=== PATIENT | male | born 1980 | race African-American/Black ===

== ENCOUNTER 2024-04-10 17:08 | Emergency (ER) | payer OTHER ==
[~2024-04-10] VITALS: Ht 180.3 cm; Wt 72.3 kg
[2024-04-10] MEDS: LIDOCAINE 1% 10 ML VIAL ID ONE (19:43)
[2024-04-10] MEDS: PERTUSS(ACELL),DIPH,TET/PF 0.5 ML SYRINGE [ADULT] IM. ONE (19:45)
[2024-04-10] MEDS: BACITRACIN 0.9 GM PACKET OINTMENT TP ONE (19:45)
[2024-04-10] MEDS: IBUPROFEN 600 MG TABLET PO ONE (19:46)
[2024-04-10] MEDS: CeFAZolin SODIUM 1 GM VIAL IM ONE (19:46)
[2024-04-10] MEDS: SODIUM CHLORIDE 0.9% 250 ML IRRIG SOLUTION BOTTLE IRRIG ONE (19:47)
[2024-04-10] MEDS ORDERED: IBUP-1492 PO (19:56)
[2024-04-10] MEDS ORDERED: CEPH-558 PO (19:56)
[2024-04-10 20:12] VITALS: BP 127/69; PULSE 74; RESP 15; TEMP 97.3
== END 2024-04-10 20:44 ==
LOC: EMS 17:08
DX: S01.81XA Laceration without foreign body of other part of head, initial encounter (principal); S02.2XXA Fracture of nasal bones, initial encounter for closed fracture; J45.909 Unspecified asthma, uncomplicated; I10 Essential (primary) hypertension; Z88.8 Allergy status to other drugs, medicaments and biological substances; Y04.8XXA Assault by other bodily force, initial encounter; Y93.89 Activity, other specified; Y92.89 Other specified places as the place of occurrence of the external cause; Y99.8 Other external cause status
CPT/HCPCS: 99285; 70450; 70486; 72125; 90715; 90471; 12011; 96372; J0690; J3490

== ENCOUNTER 2024-05-24 23:09 | Inpatient (IN) | payer OTHER ==
[~2024-05-24] VITALS: Ht 180.3 cm; Wt 79.5 kg
[~2024-05-24 23:09] MED LIST: BUPR-514 PO; GABA-1181 PO; MELA3TAB89 PO; PRAZ2 PO
[2024-05-24] MEDS ORDERED: ACET-3385 PO (23:33)
[2024-05-24] MEDS ORDERED: BUSP5TAB20 PO (23:33)
[2024-05-25 01:06] LABS: ANION GAP 9 mmol/L (8-16); CALCIUM, TOTAL 8.2 mg/dL (8.8-10.5); CARBON DIOXIDE 26 mmol/L (22-29); CHLORIDE 101 mmol/L (98-107); CREATININE 1.24 mg/dL (0.60-1.30); GLOMERULAR FILTR. RATE CALC > 60 mL/min (>60); GLUCOSE,RANDOM 98 mg/dL (70-110); POTASSIUM 4.5 mmol/L (3.5-5.1); SODIUM SERUM 136 mmol/L (136-145); UREA NITROGEN, BLOOD 18 mg/dL (7-18)
[2024-05-25 01:15] LABS: ALCOHOL, BLOOD (SERUM) < 3 mg/dL (0-10)
[2024-05-25 01:15] LABS: PH,URINE DRUG SCREEN 5.5 (5.0-8.0)
[2024-05-25 01:16] LABS: BASOPHILS % (AUTO) 1.1 % (0.0-2.0); EOSINOPHILS % (AUTO) 4.6 % (1.0-6.0); HEMATOCRIT 41.7 % (41-53); HEMOGLOBIN 13.8 g/dL (13.5-17.5); LYMPHOCYTES # (AUTO) 1.5 K/uL (1.0-4.8); LYMPHOCYTES % (AUTO) 38.7 % (22.0-44.0); MEAN CORPUSCULAR VOLUME 94 fL (80-100); MONOCYTES # (AUTO) 0.4 K/uL (0.1-1.0); MONOCYTES % (AUTO) 8.9 % (2.0-9.0); NEUTROPHILS # (AUTO) 1.8 K/uL (1.8-7.7); NEUTROPHILS % (AUTO) 46.7 % (40.0-70.0); PLATELET COUNT (AUTO) 236 K/uL (150-450); RED BLOOD CELL COUNT(AUTO) 4.44 MIL/uL (4.50-5.90); RED CELL DISTRIBUTION WIDTH 13.2 % (11.5-14.5)
[2024-05-25 01:22] LABS: AMPHET/METH SCREEN,URINE NEGATIVE (NEGATIVE); BARBITURATE SCREEN, URINE NEGATIVE (NEGATIVE); BENZODIAZEPINES SCREEN,URINE NEGATIVE (NEGATIVE); CANNABINOID SCREEN,URINE NEGATIVE (NEGATIVE); COCAINE SCREEN,URINE NEGATIVE (NEGATIVE); METHADONE SCREEN, URINE NEGATIVE (NEGATIVE); OPIATE SCREEN,URINE NEGATIVE (NEGATIVE); PHENCYCLIDINE SCREEN,URINE NEGATIVE (NEGATIVE)
[2024-05-25 01:24] LABS: ALCOHOL, URINE DRUG SCREEN NEGATIVE (NEGATIVE)
[2024-05-25] MEDS: AMPICILLIN SODIUM/SULBACTAM NA 3 GM in SODIUM CHLORIDE 0.9% 100 ML IV ONE (03:49)
[2024-05-25] MEDS: SODIUM CHLORIDE 0.9% 1,000 ML IV ONE (03:49)
[2024-05-25] MEDS: FAMOTIDINE 20 MG/2 ML VIAL IVP ONE (03:49)
[2024-05-25] MEDS: MORPHINE SULFATE 2 MG/ML SYRINGE IVP ONE ×2 (03:50→08:17)
[2024-05-25] MEDS ORDERED: MAGNESIUM HYDROXIDE SUSPENSION 30 ML UDCUP PO PRN (08:30)
[2024-05-25] MEDS: PANTOPRAZOLE SODIUM 40 MG/VIAL IVP SCH (09:49)
[2024-05-25 11:24] VITALS: BP 128/77; PULSE 64; RESP 16; TEMP 97.7; O2SAT 99
[2024-05-25 12:00] VITALS: BP 132/83; PULSE 71; RESP 18; TEMP 98.5; O2SAT 98
[2024-05-25] MEDS ORDERED: MIDAZOLAM HCL 2 MG/2 ML VIAL ONE ×3 (13:18→13:49)
[2024-05-25] MEDS ORDERED: FentaNYL CITRATE PF 100 MCG/2 ML VIAL ONE ×2 (13:19→13:49)
[2024-05-25] MEDS ORDERED: SODIUM CHLORIDE 0.9% 1,000 ML ONE (13:27)
[2024-05-25 13:36] LABS: APPEARANCE,URINE CLEAR (CLEAR); BILIRUBIN,URINE NEGATIVE (NEGATIVE); COLOR,URINE LIGHT YELLOW (YELLOW); GLUCOSE, URINE (UA) NEGATIVE (NEGATIVE); KETONES,URINE NEGATIVE (NEGATIVE); LEUKOCYTE ESTERASE ,URINE NEGATIVE (NEGATIVE); NITRATE,URINE NEGATIVE (NEGATIVE); OCCULT BLOOD,URINE NEGATIVE (NEGATIVE); PH,URINE 6.5 (5.0-8.0); PROTEIN,URINE NEGATIVE (NEGATIVE); SPECIFIC GRAVITIY, URINE 1.023 (1.003-1.030); UROBILINOGEN,URINE <=1.0 mg/dL (<=1.0)
[2024-05-25 16:00] VITALS: BP 129/72; PULSE 16; PULSE 68; RESP 16; TEMP 98.1; O2SAT 96
[2024-05-25] MEDS ORDERED: BENZOCAINE 20% 50 MCG/SPRAY 57 GM TP ONE (17:34)
[2024-05-25] MEDS ORDERED: LIDOCAINE 2% 11 ML JELLY TP ONE (17:34)
[2024-05-25] MEDS ORDERED: LIDOCAINE 4% 50 ML SOLUTION TP ONE (17:34)
[2024-05-25] MEDS: AMPICILLIN SODIUM/SULBACTAM NA 3 GM in SODIUM CHLORIDE 0.9% 100 ML IV SCH (17:43)
[2024-05-25] MEDS: MORPHINE SULFATE 2 MG/ML SYRINGE IVP PRN (17:56)
[2024-05-25 19:48] VITALS: BP 130/88; PULSE 74; RESP 17; TEMP 97.6; O2SAT 98
[2024-05-25 23:23] VITALS: BP 117/76; PULSE 67; RESP 18; TEMP 98; O2SAT 98
[2024-05-26] MEDS: ONDANSETRON HCL 4 MG/2 ML VIAL IVP PRN (03:34)
[2024-05-26 05:31] VITALS: BP 118/80; PULSE 76; RESP 18; TEMP 98.1; O2SAT 97
[2024-05-26 08:55] VITALS: BP 110/69; PULSE 72; RESP 17; TEMP 98; O2SAT 98
[2024-05-26 12:02] VITALS: BP 108/70; PULSE 53; RESP 18; TEMP 98.2; O2SAT 98
[2024-05-26 16:02] VITALS: BP 113/72; PULSE 62; RESP 17; TEMP 97.7; O2SAT 98
[2024-05-26 20:09] VITALS: BP 110/65; PULSE 70; RESP 18; TEMP 98; O2SAT 95
[2024-05-26 23:00] VITALS: RESP 18; O2SAT 95
[2024-05-27 00:06] VITALS: BP 121/88; PULSE 59; RESP 19; TEMP 97.8; O2SAT 100
[2024-05-27 04:44] VITALS: BP 104/65; PULSE 68; RESP 19; TEMP 98.2; O2SAT 98
[2024-05-27 08:55] VITALS: BP 103/66; PULSE 77; RESP 18; TEMP 98; O2SAT 98
[2024-05-27 11:50] VITALS: BP 118/75; PULSE 72; RESP 19; TEMP 98; O2SAT 100
[2024-05-27 15:34] VITALS: BP 112/74; PULSE 69; RESP 18; TEMP 98.2; O2SAT 100
[2024-05-27 20:34] VITALS: BP 124/78; PULSE 74; RESP 16; TEMP 98.4; O2SAT 98
[2024-05-28] VITALS (7 sets, daily range): BP systolic 110–122; BP diastolic 69–95; PULSE 61–72; RESP 17–20; TEMP 97.6–98.5; O2SAT 97–99
[2024-05-28] MEDS: BuPROPion HCL XL 150 MG ER TABLET PO SCH (14:08)
[2024-05-28] MEDS: BusPIRone HCL 10 MG TABLET PO SCH (21:36)
[2024-05-28] MEDS: PRAZOSIN HCL 2 MG CAPSULE PO SCH (21:36)
[2024-05-28] MEDS ORDERED: SODIUM CHLORIDE 0.9% 500 ML IV ONE (23:45)
[2024-05-29 08:26] VITALS: BP 125/84; PULSE 71; RESP 18; TEMP 98.4; O2SAT 97
[2024-05-29 20:00] VITALS: BP 132/80; PULSE 84; RESP 18; TEMP 98.7; O2SAT 98
[2024-05-29] MEDS: GABAPENTIN 300 MG CAPSULE PO SCH (22:10)
[2024-05-30 04:30] VITALS: BP 118/79; PULSE 75; RESP 18; TEMP 97.6; O2SAT 98
[2024-05-30 19:37] VITALS: BP 116/70; PULSE 75; RESP 18; TEMP 98.1; O2SAT 99
[2024-05-31 05:48] VITALS: BP 123/75; PULSE 71; RESP 18; TEMP 98; O2SAT 99
[2024-05-31 20:00] VITALS: BP 139/95; PULSE 77; RESP 18; TEMP 98; O2SAT 98
[2024-06-01 05:52] VITALS: BP 120/65; PULSE 75; RESP 19; TEMP 98.2; O2SAT 98
[2024-06-01 08:21] VITALS: BP 123/68; PULSE 77; RESP 19; TEMP 98.4; O2SAT 99
[2024-06-01] MEDS: FAMOTIDINE 20 MG TABLET PO SCH (21:10)
[2024-06-01 21:15] VITALS: BP 120/77; PULSE 71; RESP 17; TEMP 98; O2SAT 98
[2024-06-02 20:00] VITALS: BP 104/58; PULSE 77; RESP 18; O2SAT 98
[2024-06-03] MEDS: MELATONIN 5 MG TABLET PO ONE (00:04)
[2024-06-03 09:55] VITALS: BP 116/60; PULSE 80; RESP 20; TEMP 98.2; O2SAT 98
[2024-06-03] MEDS ORDERED: MAGN-169 PO (14:24)
[2024-06-03 20:00] VITALS: BP 119/72; PULSE 102; RESP 20; TEMP 98.4; O2SAT 97
== END 2024-06-03 20:45 | DRG 206 ==
LOC: EMS 23:09 → EDBEDREQ 05-25 08:08 → EDH 05-25 08:15 → 5N 05-25 10:17 → 6S 05-28 22:40
PROVIDERS: ADMIT Hospitalist; ATTEND Hospitalist
PROC: 0BC78ZZ Extirpation of Matter from Left Main Bronchus, Via Natural or Artificial Opening Endoscopic (ICD-10-PCS; principal; 2024-05-25 13:50)
DX: T17.598A Other foreign object in bronchus causing other injury, initial encounter (principal); F33.2 Major depressive disorder, recurrent severe without psychotic features; R45.851 Suicidal ideations; T18.2XXA Foreign body in stomach, initial encounter; F20.9 Schizophrenia, unspecified; J45.909 Unspecified asthma, uncomplicated; F14.90 Cocaine use, unspecified, uncomplicated; W44.8XXA Other foreign body entering into or through a natural orifice, initial encounter; I10 Essential (primary) hypertension; Z87.891 Personal history of nicotine dependence; Y93.89 Activity, other specified; Y92.89 Other specified places as the place of occurrence of the external cause; Y99.8 Other external cause status
CPT/HCPCS: 31624; 70490; 71250; 72192; 74018; 74019; 74022; 74150; 74176; 80048; 80307; 81003; 85025; 87015; 87040; 87070; 87101; 87206; 87220; 88108; 88305; 99285; C9113; G0480; J0295; J2250; J2270; J2405; J3010; J3490; J7030; J7040; J7050; 36415-L1; 36415-TC; Z7610

== ENCOUNTER 2024-07-15 17:54 | Inpatient (IN) | payer OTHER ==
[~2024-07-15] VITALS: Ht 177.8 cm; Wt 85.0 kg
[~2024-07-15 17:54] MED LIST changes: +ACET-2247 PO; +BUSP10TA23 PO; +MAGN-169 PO; -MELA3TAB89 PO
[2024-07-15 19:43] LABS: ANION GAP 12 mmol/L (8-16); CALCIUM, TOTAL 8.5 mg/dL (8.8-10.5); CARBON DIOXIDE 22 mmol/L (22-29); CHLORIDE 104 mmol/L (98-107); CREATININE 0.98 mg/dL (0.60-1.30); GLOMERULAR FILTR. RATE CALC > 60 mL/min (>60); POTASSIUM 4.3 mmol/L (3.5-5.1); SODIUM SERUM 138 mmol/L (136-145); UREA NITROGEN, BLOOD 14 mg/dL (7-18)
[2024-07-15 19:44] LABS: BASOPHILS % (AUTO) 1.1 % (0.0-2.0); EOSINOPHILS % (AUTO) 2.8 % (1.0-6.0); HEMATOCRIT 43.8 % (41-53); HEMOGLOBIN 14.3 g/dL (13.5-17.5); LYMPHOCYTES # (AUTO) 1.6 K/uL (1.0-4.8); LYMPHOCYTES % (AUTO) 41.1 % (22.0-44.0); MEAN CORPUSCULAR HEMOGLOBIN 30.2 pg (26.0-34.0); MEAN CORPUSCULAR HGB CONC 32.6 G/dL (31.0-37.0); MEAN CORPUSCULAR VOLUME 93 fL (80-100); MONOCYTES # (AUTO) 0.2 K/uL (0.1-1.0); MONOCYTES % (AUTO) 5.5 % (2.0-9.0); NEUTROPHILS # (AUTO) 1.9 K/uL (1.8-7.7); NEUTROPHILS % (AUTO) 49.5 % (40.0-70.0); PLATELET COUNT (AUTO) 200 K/uL (150-450); RED BLOOD CELL COUNT(AUTO) 4.73 MIL/uL (4.50-5.90); RED CELL DISTRIBUTION WIDTH 13.3 % (11.5-14.5); WHITE BLOOD COUNT (AUTO) 3.9 K/uL (4.5-11.0)
[2024-07-15] MEDS: KETOROLAC TROMETHAMINE 30 MG/ML VIAL IVP ONE (19:48)
[2024-07-15 19:52] LABS: GLUCOSE,RANDOM 101 mg/dL (70-110)
[2024-07-15 19:59] LABS: ALCOHOL, BLOOD (SERUM) < 3 mg/dL (0-10)
[2024-07-15 20:00] LABS: ALKALINE PHOSPHATASE 72 U/L (46-116); BILIRUBIN,TOTAL 0.3 mg/dL (0.1-1.0); TOTAL PROTEIN, SERUM 7.3 g/dL (6.4-8.2)
[2024-07-15] MEDS ORDERED: ONDANSETRON HCL 4 MG/2 ML VIAL IVP PRN (20:00)
[2024-07-15] MEDS ORDERED: MORPHINE SULFATE 2 MG/ML SYRINGE IVP PRN (20:00)
[2024-07-15] MEDS ORDERED: BISACODYL 10 MG RECTAL RECTAL SUPPOSITORY PR PRN (20:00)
[2024-07-15] MEDS: DOCUSATE SODIUM 100 MG CAPSULE PO SCH (20:12)
[2024-07-15 20:14] LABS: ALANINE AMINOTRANSFERASE 23 U/L (12-78); ALBUMIN 3.8 g/dL (3.4-5.0); ASPARTATE AMINOTRANSFERASE 46 U/L (15-37)
[2024-07-15 23:10] VITALS: BP 120/79; PULSE 58; RESP 18; TEMP 97.9; O2SAT 99
[2024-07-15] MEDS: HEPARIN SODIUM,PORCINE 5,000 UNITS/ML VIAL SQ SCH (23:16)
[2024-07-16 08:21] VITALS: BP 122/79; PULSE 56; RESP 18; TEMP 97.8; O2SAT 96
[2024-07-16] MEDS: PANTOPRAZOLE SODIUM 40 MG DR TABLET PO SCH (08:26)
[2024-07-16] MEDS: PEG 3350/NA SULF,BICARB,CL/KCL 4000 ML SOLUTION PO ONE (13:15)
[2024-07-16 20:15] VITALS: BP 133/85; PULSE 67; RESP 18; TEMP 97.8; O2SAT 99
[2024-07-17 04:32] VITALS: BP 126/85; PULSE 71; RESP 18; TEMP 97.8; O2SAT 99
[2024-07-17 08:10] VITALS: BP 137/80; PULSE 58; RESP 18; TEMP 97.6; O2SAT 98
[2024-07-17] MEDS: PEG 3350/NA SULF,BICARB,CL/KCL 4000 ML SOLUTION PO ONE (10:35)
[2024-07-17 20:03] VITALS: BP 121/70; PULSE 71; RESP 18; TEMP 98.3; O2SAT 97
[2024-07-17] MEDS: ZOLPIDEM TARTRATE 5 MG TABLET PO PRN (23:00)
[2024-07-18] MEDS: HYDROCODONE/ACETAMINOPHEN 5-325 MG TABLET PO PRN (00:42)
[2024-07-18 05:14] VITALS: BP 117/77; PULSE 58; RESP 18; TEMP 98; O2SAT 100
[2024-07-18 07:29] LABS: ANION GAP 7 mmol/L (8-16); CARBON DIOXIDE 27 mmol/L (22-29); CHLORIDE 103 mmol/L (98-107); CREATININE 1.09 mg/dL (0.60-1.30); GLOMERULAR FILTR. RATE CALC > 60 mL/min (>60); GLUCOSE,RANDOM 83 mg/dL (70-110); POTASSIUM 4.3 mmol/L (3.5-5.1); SODIUM SERUM 137 mmol/L (136-145); UREA NITROGEN, BLOOD 8 mg/dL (7-18)
[2024-07-18 08:00] VITALS: BP 118/78; PULSE 60; RESP 18; TEMP 97.9; O2SAT 98
[2024-07-18 20:00] VITALS: BP 127/88; PULSE 65; RESP 18; TEMP 98.4; O2SAT 98
[2024-07-19 08:12] VITALS: BP 144/93; PULSE 69; RESP 18; TEMP 97.7; O2SAT 96
[2024-07-19 19:52] VITALS: BP 130/91; PULSE 75; RESP 18; TEMP 97.8; O2SAT 100
[2024-07-19] MEDS: MAGNESIUM HYDROXIDE SUSPENSION 30 ML UDCUP PO PRN (23:35)
[2024-07-20 04:43] VITALS: BP 121/91; PULSE 72; RESP 18; TEMP 98; O2SAT 98
[2024-07-20 07:10] LABS: ANION GAP 9 mmol/L (8-16); CALCIUM, TOTAL 8.7 mg/dL (8.8-10.5); CARBON DIOXIDE 23 mmol/L (22-29); CHLORIDE 102 mmol/L (98-107); GLOMERULAR FILTR. RATE CALC > 60 mL/min (>60); GLUCOSE,RANDOM 117 mg/dL (70-110); POTASSIUM 3.9 mmol/L (3.5-5.1); SODIUM SERUM 134 mmol/L (136-145); UREA NITROGEN, BLOOD 10 mg/dL (7-18)
[2024-07-20 07:55] VITALS: BP 123/76; PULSE 62; RESP 17; TEMP 97.7; O2SAT 98
[2024-07-20] MEDS: PEG 3350/NA SULF,BICARB,CL/KCL 4000 ML SOLUTION PO ONE (15:14)
[2024-07-20] MEDS: RINGERS SOLUTION,LACTATED 1,000 ML IV SCH (15:34)
[2024-07-20 19:19] VITALS: BP 120/93; PULSE 92; RESP 18; TEMP 98.3; O2SAT 96
[2024-07-21 05:08] VITALS: BP 113/76; PULSE 80; RESP 18; TEMP 97.9; O2SAT 97
[2024-07-21 07:24] LABS: BASOPHILS % (AUTO) 0.6 % (0.0-2.0); EOSINOPHILS % (AUTO) 4.7 % (1.0-6.0); HEMATOCRIT 42.3 % (41-53); HEMOGLOBIN 13.9 g/dL (13.5-17.5); LYMPHOCYTES # (AUTO) 1.7 K/uL (1.0-4.8); LYMPHOCYTES % (AUTO) 55.4 % (22.0-44.0); MEAN CORPUSCULAR HEMOGLOBIN 30.1 pg (26.0-34.0); MEAN CORPUSCULAR HGB CONC 32.9 G/dL (31.0-37.0); MEAN CORPUSCULAR VOLUME 92 fL (80-100); MONOCYTES # (AUTO) 0.3 K/uL (0.1-1.0); MONOCYTES % (AUTO) 8.9 % (2.0-9.0); NEUTROPHILS # (AUTO) 0.9 K/uL (1.8-7.7); NEUTROPHILS % (AUTO) 30.4 % (40.0-70.0); PLATELET COUNT (AUTO) 171 K/uL (150-450); RED BLOOD CELL COUNT(AUTO) 4.63 MIL/uL (4.50-5.90); RED CELL DISTRIBUTION WIDTH 13.1 % (11.5-14.5); WHITE BLOOD COUNT (AUTO) 3.1 K/uL (4.5-11.0)
[2024-07-21 07:41] LABS: ANION GAP 7 mmol/L (8-16); CALCIUM, TOTAL 8.5 mg/dL (8.8-10.5); CARBON DIOXIDE 27 mmol/L (22-29); CHLORIDE 103 mmol/L (98-107); GLOMERULAR FILTR. RATE CALC > 60 mL/min (>60); GLUCOSE,RANDOM 78 mg/dL (70-110); POTASSIUM 4.1 mmol/L (3.5-5.1); SODIUM SERUM 137 mmol/L (136-145); UREA NITROGEN, BLOOD 15 mg/dL (7-18)
[2024-07-21 07:54] VITALS: BP 130/81; PULSE 64; RESP 18; TEMP 98.1; O2SAT 99
[2024-07-21] MEDS ORDERED: PEG 3350/NA SULF,BICARB,CL/KCL 4000 ML SOLUTION PO ONE (11:00)
[2024-07-21] MEDS: MAGNESIUM CITRATE [LEMON] 300 ML ORAL SOLUTION PO ONE (11:48)
[2024-07-21 20:06] VITALS: BP 121/77; PULSE 79; RESP 18; TEMP 98.5; O2SAT 98
[2024-07-22 05:35] VITALS: BP 120/65; PULSE 68; RESP 18; TEMP 97.5; O2SAT 98
[2024-07-22 08:23] VITALS: BP 134/82; PULSE 72; RESP 19; TEMP 97.8; O2SAT 98
[2024-07-22] MEDS: MAGNESIUM CITRATE [LEMON] 300 ML ORAL SOLUTION PO ONE (15:34)
[2024-07-22] MEDS: POLYETHYLENE GLYCOL 3350 17 GM PACKET PO SCH (17:08)
[2024-07-22 19:55] VITALS: BP 122/78; PULSE 85; RESP 18; TEMP 98.4; O2SAT 97
[2024-07-22] MEDS: DOCUSATE SODIUM 100 MG CAPSULE PO SCH (20:03)
[2024-07-23 05:08] VITALS: BP 138/103; PULSE 75; RESP 20; TEMP 98.2; O2SAT 98
[2024-07-23] MEDS: ACETAMINOPHEN 325 MG TABLET PO PRN (08:20)
[2024-07-23 08:22] VITALS: BP 118/91; PULSE 76; RESP 19; TEMP 97.3; O2SAT 99
[2024-07-23 19:36] VITALS: BP 130/94; PULSE 81; RESP 20; TEMP 98.3; O2SAT 100
== END 2024-07-24 03:20 | disposition left against medical advice (07) | DRG 394 ==
LOC: EMS 17:56 → EDH 21:42 → 6S 22:40
PROVIDERS: ADMIT Internal Medicine; ATTEND Internal Medicine
DX: T18.3XXA Foreign body in small intestine, initial encounter (principal); E87.1 Hypo-osmolality and hyponatremia; R45.851 Suicidal ideations; I10 Essential (primary) hypertension; F20.9 Schizophrenia, unspecified; E86.0 Dehydration; Z53.29 Procedure and treatment not carried out because of patient's decision for other reasons; J44.9 Chronic obstructive pulmonary disease, unspecified; Z87.891 Personal history of nicotine dependence; W44.A9XA Other batteries entering into or through a natural orifice, initial encounter; Y93.89 Activity, other specified; Y92.89 Other specified places as the place of occurrence of the external cause; Y99.8 Other external cause status; F31.9 Bipolar disorder, unspecified; I71.40 Abdominal aortic aneurysm, without rupture, unspecified
CPT/HCPCS: 71250; 72192; 74018; 74150; 76870; 80048; 80053; 83735; 85025; 99285; G0480; J1644; J1885; J7120; 36415-L1; 36415-TC